=== PATIENT | female | born 1960 | race Caucasian/White ===

== ENCOUNTER → 2025-05-12 08:19 | Outpatient (REF) | payer OTHER, SELFPAY | LOC: RST 08:19 | PROVIDERS: ATTENDING PHYSICIAN Nurse Practitioner Adult Health | DX: R13.10 Dysphagia, unspecified (principal) | CPT/HCPCS: 74230; 92611 ==

== ENCOUNTER 2025-06-07 06:18 | Day surgery (SDC) | payer OTHER, SELFPAY | END 2025-06-07 11:00 | disposition home or self-care (01) | LOC: GI 06:18 | PROVIDERS: ATTENDING PHYSICIAN Specialist | DX: R13.10 Dysphagia, unspecified (principal); R63.4 Abnormal weight loss; K22.89 Other specified disease of esophagus; K31.89 Other diseases of stomach and duodenum; K20.90 Esophagitis, unspecified without bleeding | CPT/HCPCS: 43239; 88305; 88342 ==